=== PATIENT | male | born 1970 | race American Indian/Alaskan Native ===

== ENCOUNTER 2017-10-27 20:52 | Emergency (ER) | payer OTHER ==
--- NOTE | 2017-10-27 23:57 | XRay Report ---
FINAL REPORT EXAM: XR TIBIA FIBULA 2V RT HISTORY: lower leg pain/swelling r/t injury TECHNIQUE: Right tibia fibula two views PRIORS: None. FINDINGS: No fracture is identified. The joint spaces are within normal limits. No focal bony lesion identified. No radiopaque foreign body seen. IMPRESSION: Negative no acute abnormality.
--- NOTE | 2017-10-28 01:42 | Emergency Department Report ---
HPI - General Chief Complaint: Extremity Injury, Lower Time Seen by Provider: 10/28/17 00:55 - HPI HPI: Patient is a 47-year-old male with no prior past medical history who presents to the ED complaining of right lower leg pain 1 week. Patient says about a week ago he and his coworker were moving all washing machine that accidentally slipped and hit his leg. Patient states minimal throbbing pain on the right leg since a week ago. Patient states yesterday he noticed some swelling on his lower leg. Patient states yesterday he worked all day walking, lifting, on his feet all day which should things worsen the pain and swelling. Patient states he takes [id number] medications such as Motrin in the house of the pain. He denies fevers/chest pain/shortness of breath/loss of sensation in the leg/ lacerations are present and leg ED Past Medical Hx - Past Medical History Previous Medical History?: No - Surgical History Past Surgical History?: No - Social History Smoking Status: Current Every Day Smoker Substance Use Type: None - Medications Home Medications: Home Medications Medication Instructions Recorded Confirmed Last Taken Type Cyclobenzaprine [Flexeril] 10 mg PO QHS PRN #20 tablet 10/28/17 Unknown Rx Ibuprofen [Motrin] 800 mg PO Q8HR PRN #30 tablet 10/28/17 Unknown Rx ED Review of Systems ROS: Stated complaint: RIGHT LEG PAIN Other details as noted in HPI Constitutional: denies: chills, fever Eyes: denies: eye pain, eye discharge, vision change ENT: denies: ear pain, throat pain Respiratory: denies: cough, shortness of breath, wheezing Cardiovascular: denies: chest pain, palpitations Endocrine: no symptoms reported Gastrointestinal: denies: abdominal pain, nausea, diarrhea Genitourinary: denies: urgency, dysuria Musculoskeletal: denies: back pain, joint swelling, arthralgia Skin: denies: rash, lesions Neurological: denies: headache, weakness, paresthesias Psychiatric: denies: anxiety, depression Hematological/Lymphatic: denies: easy bleeding, easy bruising Physical Exam - Physical Exam Vital Signs: Vital Signs 10/27/17 10/27/17 10/27/17 21:26 21:43 21:51 Temperature 98.4 F 98.4 F Pulse Rate 90 89 Respiratory 18 18 Rate Blood Pressure 193/103 193/103 Blood Pressure 156/92 [Left] O2 Sat by Pulse 97 98 Oximetry Physical Exam: GENERAL: Alert and oriented x3, no apparent distress, Normal Gait, atraumatic. HEAD: Head is normocephalic and a-traumatic. NECK: Supple. Non edematous, No lymphadenopathy or thyromegaly. No C-spine tenderness, full range of motion LUNGS: Symetrical with respiration, No wheezing, no rales or crackles, CTAB. HEART: S1, S2 present, regular rate and rhythm without murmur, no rubs, no gallops. Non tender to palpation EXTREMITIES/MUSCULOSKELETAL: No cyanosis, clubbing, rash, lesions or edema. Full ROM bilaterally. UE/LE Pulses 2+ bilaterally. LE and UE 5+ strength bilaterally, right lower leg mildly swollen, nonpitting edema, full range of motion, Homans sign negative, mild tenderness to palpation of the gastrocnemius muscles NEUROLOGIC: The patient is cooperative with no focal neurologic deficits. SKIN: Warm and dry, No lesions, No ulceration or induration present. ED Course Vital Signs 10/27/17 10/27/17 10/27/17 21:26 21:43 21:51 Temperature 98.4 F 98.4 F Pulse Rate 90 89 Respiratory 18 18 Rate Blood Pressure 193/103 193/103 Blood Pressure 156/92 [Left] O2 Sat by Pulse 97 98 Oximetry ED Medical Decision Making - Radiology Data Radiology results: report reviewed, image reviewed FINAL REPORT EXAM: XR TIBIA FIBULA 2V RT HISTORY: lower leg pain/swelling r/t injury TECHNIQUE: Right tibia fibula two views PRIORS: None. FINDINGS: No fracture is identified. The joint spaces are within normal limits. No focal bony lesion identified. No radiopaque foreign body seen. IMPRESSION: Negative no acute abnormality. Transcribed By: RISHI Dictated By: TANA BRITTON MD Electronically Authenticated By: TANA BRITTON MD Signed Date/Time: 10/27/17 8773 - Medical Decision Making 47-year-old male presents to ED with myalgia of right leg ED course: Patient received pain medication in ED. X-ray of the lower leg shows no acute deformity or abnormalities I discussed this with the patient. D-dimer not elevated, so DVT is ruled out. Vital signs are normal patient is in no acute distress Discussed with patient follow-up with primary care physician. Discussed the patient and take medications as prescribed. I discussed the patient if he has worsening symptoms or new onset of symptoms to immediately return to ED immediately Patient has no neurological deficit. Patient is alert and oriented 3 and understands all instructions given. Discussed drowsiness effect of Flexeril makes her drowsy and not to operate machinery while taking flexeril Critical care attestation.: If time is entered above; I have spent that time in minutes in the direct care of this critically ill patient, excluding procedure time. ED Disposition Clinical Impression: Myalgia, Leg pain, right Disposition: [id number] TO HOME OR SELFCARE Is pt being admited?: No Does the pt Need Aspirin: No Condition: Stable Instructions: Trigger Point Pain (ED), Leg Edema (ED), Musculoskeletal Pain (ED ) Additional Instructions: Make sure to follow up with the primary care physician as discussed. Take all your medications as you've been prescribed. Stay active mention walking daily No prolonged sitting If you have any worsening symptoms or develop new symptoms please return to ED immediately. Prescriptions: Cyclobenzaprine [Flexeril] 10 mg PO QHS PRN #20 tablet PRN Reason: Muscle Spasm Ibuprofen [Motrin] 800 mg PO Q8HR PRN #30 tablet PRN Reason: Pain Referrals: PRIMARY CARE, [Primary Care Provider] - 3-5 Days CHANCE CLANCY MD [Referring] - 3-5 Days [facility] [Outside] - 3-5 Days [facility] [Outside] - 3-5 Days Forms: Work/School Release Form(ED) Time of Disposition: 04:12
[2017-10-28] MEDS ORDERED: MOTRIN PO ONE (02:37)
[2017-10-28 05:12] VITALS: BP 152/89
== END 2017-10-28 05:11 | disposition home or self-care (01) ==
LOC: ED 20:52
DX: M79.661 Pain in right lower leg (principal); M79.1 Myalgia; F17.200 Nicotine dependence, unspecified, uncomplicated
CPT/HCPCS: 36415; 85379; 99283